=== PATIENT | male | born 1940 | race Caucasian/White ===

== ENCOUNTER 2017-01-29 10:09 | Inpatient (IN) ==
[2017-01-29] MEDS ORDERED: 0.9 % SODIUM CHLORIDE 1,000 ML IV ONE ×2 (10:23→12:10)
--- NOTE | 2017-01-29 10:39 | Emergency Department Note ---
Weakness HPI - General Chief complaint: Weakness Stated complaint: fall, low bp, dizziness Time Seen by Provider: 01/29/17 10:23 Source: patient, EMS Mode of arrival: EMS Limitations: no limitations - History of Present Illness HPI Narrative: 76-year-old male arrives via EMS with vague complaints. States he might be a little weaker than normal but he is always somewhat weak. He has a little bit short of breath at times but states that is a chronic issue for several years. He is still a smoker and has a "breathing machine at home". States the only thing different about this morning is every time he gets up he is a little bit dizzy. This morning he was dizzy and kind of fell but not all the way to the ground. He has had right hip pain for several months now the right hip pain is worse since that fall this morning. He did not hit his head. No head, neck, or back pain. He lives at [facility] and they wanted him to come get checked out. He states he has been eating and drinking as usual. Denies fever or chills. No nausea, vomiting, or diarrhea. States he has no concerns Associated symptoms: Denies: chest pain, confusion, dark stools, diaphoresis, dysuria, fever/chills, loss of appetite, nausea/vomiting, rash, syncope - Related Data Home Medications Medication Instructions Recorded Confirmed Aspirin [Teja Chewable Aspirin] 81 mg PO QDAY 04/23/16 01/29/17 Furosemide [Lasix] 40 mg PO DAILY 04/23/16 01/29/17 Gabapentin [Neurontin] 600 mg PO BID 04/23/16 01/29/17 LORazepam [Ativan] 0.5 mg PO BID 04/23/16 01/29/17 Memantine HCl [Namenda] 5 mg PO QDAY 04/23/16 01/29/17 Omeprazole 40 mg PO QDAY 04/23/16 01/29/17 Potassium Chloride [K-Tab ER] 20 meq PO QDAY 04/23/16 01/29/17 Simvastatin [Zocor] 40 mg PO HS 04/23/16 01/29/17 Vitamin B Complex 1 cap PO DAILY 04/23/16 01/29/17 Ziprasidone HCl [Geodon] 60 mg PO HS 04/23/16 01/29/17 Divalproex Sodium [Depakote] 250 mg PO QNOON 01/29/17 01/29/17 Divalproex Sodium [Depakote] 500 mg PO BID 01/29/17 01/29/17 Ipratropium/Albuterol [Duoneb] 3 ml NEB Q6HP PRN 01/29/17 01/29/17 Sertraline HCl [Zoloft] 100 mg PO DAILY 01/29/17 01/29/17 Allergies Allergy/AdvReac Type Severity Reaction Status Date / Time No Known Drug Allergies Allergy Verified 01/29/17 10:14 Review of Systems All systems ED: reviewed and negative except as stated. Past Medical History - Past Medical History [facility] Narrative: Medical History (Last Updated 09/22/16 @ 14:36 by [employer] MS) Chronic low back pain with right-sided sciatica (Acute) Medical history: Reports: CHF, COPD, other (Chronic back pain, anxiety, depression, edema, hyponatremia, ataxia, weight loss, hypokalemia, bipolar, schizophrenia, hyperlipidemia, mycoplasma pneumonia, nutrition disorder, fatty acid deficiency) - Social History smoking status: Current every day smoker Alcohol use: Reports: Unknown Drug use: Reports: none Physical Exam - General Limitations: no limitations General appearance: alert, in no apparent distress - Head Head exam: atraumatic, normocephalic, normal inspection - Eye Eye exam: Present: normal appearance, PERRL. Absent: conjunctival injection, periorbital swelling, periorbital tenderness - ENT ENT exam: normal exam, normal oropharynx, TM's normal bilaterally, normal external ear exam, other (Mucous membranes are slightly dry) - Neck Neck exam: Present: normal inspection, trachea midline. Absent: tenderness, lymphadenopathy - Chest Chest inspection: Present: normal inspection, symmetric chest wall rise - Respiratory Respiratory exam: Present: wheezes (Wheezes to bases bilaterally and rhonchi to mid and lower lobes bilateral). Absent: respiratory distress, accessory muscle use - Cardiovascular Cardiovascular exam: Present: regular rate, normal heart sounds - Abdominal Exam Abdominal exam: Present: soft, normal bowel sounds. Absent: distention, tenderness, guarding, mass - Extremities Exam Extremities exam: Present: normal inspection, tenderness (Tenderness, diffuse over the right hip. Pain with flexion and extension. No shortening or rotation ), normal capillary refill. Absent: pedal edema - Back Exam Back exam: Present: normal inspection. Absent: vertebral tenderness - Neurological Exam Neurological exam: Present: alert, oriented X3 (Very hard of hearing). Absent: motor sensory deficit - Psychiatric Psychiatric exam: Present: normal affect, normal mood - Skin Skin exam: Present: warm, dry, intact, normal color. Absent: rash, cyanosis, diaphoresis, erythema Course Course Narrative: @ 1220 I spoke with hospitalist Dr. Ellison who agrees to admit and care for patient Vital Signs Temperature 98.7 F 01/29/17 10:11 Pulse Rate 87 01/29/17 10:11 Respiratory Rate 16 01/29/17 10:11 Blood Pressure 88/56 01/29/17 10:11 Pulse Oximetry (%) 96 01/29/17 10:11 Temperature 98.5 F 01/29/17 11:31 Pulse Rate 64 01/29/17 13:01 Respiratory Rate 24 H 01/29/17 13:01 Blood Pressure 123/68 01/29/17 13:01 Pulse Oximetry (%) 96 01/29/17 13:01 Weakness - Lab Data Lab results reviewed: Yes I reviewed the patient's lab results. Result diagrams: 01/29/17 10:35 01/29/17 10:35 Lab Results 01/29/17 01/29/17 01/29/17 Range/Units 10:35 10:35 10:35 WBC 21.6 H (4.5-11.0) K/mcL RBC 3.83 L (4.50-5.90) M/mcL Hgb 12.8 L (13.5-16.5) g/dL Hct 37.5 L (41.0-55.0) % MCV 97.9 (80.0-100.0) fL MCH 33.5 (26.0-34.0) pg MCHC 34.2 (31.0-36.0) g/dL RDW 15.3 H (11.5-14.5) % Plt Count 233 (140-440) K/mcL MPV 9.7 (7.4-10.4) fL Total Counted 100 Seg Neutrophils % 83 H (38-78) % Band Neutrophils % Not Reportable Lymphocytes % 9 L (15-49) % Monocytes % (Manual) 8 (1-12) % Platelet Estimate Normal (NORMAL) RBC Morphology Normal (NORMAL) VBG Lactic Acid (0.5-2.2) mmol/L Sodium 138 (133-145) mmol/L Potassium 4.1 (3.3-5.1) mmol/L Chloride 101 (96-108) mmol/L Carbon Dioxide 20 L (22-30) mmol/L Anion Gap 17.0 H (8-16) BUN 27 H (8-23) mg/dl Creatinine 1.0 (0.7-1.2) mg/dl GFR Calculation 73 Glucose 150 H (70-105) mg/dL Calcium 8.7 (8.6-10.4) mg/dl Total Bilirubin 0.5 (0.0-1.0) mg/dL AST 20 (0-37) U/l ALT 12 (0-40) U/l Alkaline Phosphatase 71 (39-117) U/L Troponin T < 0.01 (0-0.03) ng/ml NT-Pro-B Natriuret Pep 760.1 H (0-450) pg/ml Total Protein 7.0 (5.9-8.4) gm/dL Albumin 3.4 (3.2-5.2) gm/dL Globulin 3.6 (2.2-3.7) gm/dL Albumin/Globulin Ratio 0.9 L (1.0-2.3) 01/29/17 Range/Units 10:45 WBC (4.5-11.0) K/mcL RBC (4.50-5.90) M/mcL Hgb (13.5-16.5) g/dL Hct (41.0-55.0) % MCV (80.0-100.0) fL MCH (26.0-34.0) pg MCHC (31.0-36.0) g/dL RDW (11.5-14.5) % Plt Count (140-440) K/mcL MPV (7.4-10.4) fL Total Counted Seg Neutrophils % (38-78) % Band Neutrophils % Lymphocytes % (15-49) % Monocytes % (Manual) (1-12) % Platelet Estimate (NORMAL) RBC Morphology (NORMAL) VBG Lactic Acid 2.6 H (0.5-2.2) mmol/L Sodium (133-145) mmol/L Potassium (3.3-5.1) mmol/L Chloride (96-108) mmol/L Carbon Dioxide (22-30) mmol/L Anion Gap (8-16) BUN (8-23) mg/dl Creatinine (0.7-1.2) mg/dl GFR Calculation Glucose (70-105) mg/dL Calcium (8.6-10.4) mg/dl Total Bilirubin (0.0-1.0) mg/dL AST (0-37) U/l ALT (0-40) U/l Alkaline Phosphatase (39-117) U/L Troponin T (0-0.03) ng/ml NT-Pro-B Natriuret Pep (0-450) pg/ml Total Protein (5.9-8.4) gm/dL Albumin (3.2-5.2) gm/dL Globulin (2.2-3.7) gm/dL Albumin/Globulin Ratio (1.0-2.3) - Radiology Data Radiology results reviewed: Yes I reviewed the patient's radiology results. - EKG Data EKG attestation: Yes I reviewed and interpreted this EKG. EKG shows normal: sinus rhythm Rate: normal Rhythm: NSR [place]/QRS: normal Interpretation: no acute changes, normal EKG Disposition Pt seen by COMMER[employer] TRA[employer]ER TR[employer] DRIVER/PA only: Yes Clinical Impression: Pneumonia Disposition: Xfer As Inpt ([facility]) Condition: Fair Referrals: Bel Beck MD [Primary Care Provider] - Time of Disposition: 13:48
[2017-01-29 11:29] LABS: Mean Cell Volume 97.9 fL (80.0-100.0); Mean Corpuscular HGB Conc 34.2 g/dL (31.0-36.0); Mean Corpuscular Hemoglobin 33.5 pg (26.0-34.0); Platelet Count 233 K/mcL (140-440); RBC 3.83 M/mcL (4.50-5.90); Red Cell Distribution Width 15.3 % (11.5-14.5)
[2017-01-29 11:53] LABS: proBNP 760.1 pg/ml (0-450)
[2017-01-29 11:54] LABS: ALT/SGPT 12 U/l (0-40); Albumin 3.4 gm/dL (3.2-5.2); Albumin/Globulin Ratio 0.9 (1.0-2.3); Alkaline Phosphatase 71 U/L (39-117); Blood Urea Nitrogen 27 mg/dl (8-23)
[2017-01-29 12:06] LABS: Lymphocytes % 9 % (15-49); Monocytes % (Manual) 8 % (1-12); Platelet Estimate NORMAL (NORMAL); RBC Morphology NORMAL (NORMAL); Segmented Neutrophils % 83 % (38-78)
[2017-01-29] MEDS ORDERED: CEFEPIME 1 GM in DEXTROSE 5% IN WATER 50 ML IV ONE (12:41)
--- NOTE | 2017-01-29 15:39 | Internal Med History&Physical ---
Medical - H&P: HPI Patient information: Note initiated : 01/29/17 at 3:32 pm Patient: Gabe Armas 76 y/o M admitted on for fall, low bp, SIRS syndrome History of present illness: Mr. Armas is a 76 year old with a history of numerous chronic medical problems. Apparently, when he woke up today he felt quite lightheaded, and either fell or nearly fell down. He was sent over to the ER from [facility]. He says he has had a bit of a headache. He thinks his vision may have been blurry but is not sure. He is not a great historian. ER evaluation showed marked leukocytosis, hypotension, lactic acidosis, chest x- ray suggestive of pneumonia. Otherwise, the patient cannot recall having fever or chills, new ear or sinus symptoms, sore throat or cough, shortness of breath, chest pain or palpitations , abdominal pain, nausea or vomiting, diarrhea or constipation. He says he has chronic urinary frequency which is unchanged. He denies a history of COPD, but is treated with duo nebs at [facility]. He has also been a smoker since the age of 18, although he says he does not inhale very much of them. He did have some increased right hip pain after his fall today, and ER evaluation was reported as negative. Past medical history: chronic back pain, sciatica. Hyperlipidemia GERD Memory loss, depression and anxiety, bipolar disorder, schizophrenia hyponatremia Edema Ataxia COPD? Tobacco abuse CHF? Past history of mycoplasma pneumonia History of fatty acid deficiency Medications: Depakote 250 mg p.o. q. noon Depakote 500 mg p.o. twice daily Geodon 60 mg nightly Vitamin B complex one daily Zocor 40 mg nightly Zoloft 100 mg daily Potassium chloride 20 mEq daily Omeprazole 40 mg daily Memantine 5 mg daily [place] Ativan 0.5 mg twice daily Duo nebs every 6 hours as needed Gabapentin 600 mg p.o. twice daily Lasix 40 mg daily Aspirin 81 mg daily Lorazepam 0.5 mg twice daily Allergies: No known drug allergies. Social history: Patient is a current smoker, starting at age 18. He says he quit once, but is unable to really quantify how much he has been smoking.. He denies alcohol or drug use. He lives at [facility]. He hopes to return home soon. He says his closest relative is a gal that lives in [place]. His son ,Blayne, lives in [place], and he would like him to act as his POA. He requests full code at this time. Family history: Patient believes his father had Parkinson's disease. He is a little unclear on what his mother from. His brother with congestive heart failure. Medical - H&P: Meds Home Medications Medication Instructions Recorded Confirmed Type Aspirin [Teja Chewable Aspirin] 81 mg PO QDAY 04/23/16 01/29/17 History Furosemide [Lasix] 40 mg PO DAILY 04/23/16 01/29/17 History Gabapentin [Neurontin] 600 mg PO BID 04/23/16 01/29/17 History LORazepam [Ativan] 0.5 mg PO BID 04/23/16 01/29/17 History Memantine HCl [Namenda] 5 mg PO QDAY 04/23/16 01/29/17 History Omeprazole 40 mg PO QDAY 04/23/16 01/29/17 History Potassium Chloride [K-Tab ER] 20 meq PO QDAY 04/23/16 01/29/17 History Simvastatin [Zocor] 40 mg PO HS 04/23/16 01/29/17 History Vitamin B Complex 1 cap PO DAILY 04/23/16 01/29/17 History Ziprasidone HCl [Geodon] 60 mg PO HS 04/23/16 01/29/17 History Divalproex Sodium [Depakote] 250 mg PO QNOON 01/29/17 01/29/17 History Divalproex Sodium [Depakote] 500 mg PO BID 01/29/17 01/29/17 History Ipratropium/Albuterol [Duoneb] 3 ml NEB Q6HP PRN 01/29/17 01/29/17 History Sertraline HCl [Zoloft] 100 mg PO DAILY 01/29/17 01/29/17 History Allergies Allergy/AdvReac Type Severity Reaction Status Date / Time No Known Drug Allergies Allergy Verified 01/29/17 10:14 Medical - H&P: Exam - Constitutional Vitals: Temp Pulse Resp BP Pulse Ox 98.5 F 64 18 124/69 96 01/29/17 11:31 01/29/17 13:01 01/29/17 15:01 01/29/17 15:01 01/29/17 13:01 On arrival, the patient does not appear to be in any distress. Respiratory rate varies from 16-23. Prior sure varies from 88/56 to 130/66. Oxygen is 96% on room air. Head: Normocephalic, atraumatic. Ears: TMs and canals are clear. Pharynx: Is clear. He is edentulous, with full plates. Posterior pharynx does not show any exudate. Neck: Is supple, without lymphadenopathy, JVD, thyromegaly. He does have bilateral carotid bruits, which may be radiating from his heart murmur. Cardiac exam: Shows regular rate and rhythm with normal S1 and S2, without rubs or gallops. There is a 2/6 holosystolic murmur heard loudest at the apex. Lungs: Is generally decreased breath sounds throughout. I do not really appreciate any crackles, wheezes, rhonchi. Abdomen: Is soft and nontender with no masses. Bowel sounds are active. Extremities: Show no cyanosis, clubbing, edema. He does have chronic pigment changes consistent with previous stasis dermatitis. The skin on his feet is very dry. Neurologic exam: The patient is awake and alert. Affect is a little unusual. He is calm and cooperative, but a little on the irritable side. Motor exam is grossly nonfocal. Medical - H&P: Reslt - Labs CBC & Chem 7: 01/29/17 10:35 01/29/17 10:35 Labs: Short CBC 01/29/17 Range/Units 10:35 WBC 21.6 H (4.5-11.0) K/mcL Hgb 12.8 L (13.5-16.5) g/dL Hct 37.5 L (41.0-55.0) % Plt Count 233 (140-440) K/mcL BMP 01/29/17 10:35 Sodium 138 Potassium 4.1 Chloride 101 Carbon Dioxide 20 L BUN 27 H Creatinine 1.0 Glucose 150 H Calcium 8.7 Cardiac Enzymes 01/29/17 Range/Units 10:35 Troponin T < 0.01 (0-0.03) ng/ml Liver Function 01/29/17 Range/Units 10:35 Total Bilirubin 0.5 (0.0-1.0) mg/dL AST 20 (0-37) U/l ALT 12 (0-40) U/l Alkaline Phosphatase 71 (39-117) U/L Albumin 3.4 (3.2-5.2) gm/dL January 29: Lactic acid is elevated at 2.6. ABG: On room air: PH 7.45, CO2 40, PO2 74, bicarb 27, O2 saturation 95% BNP is elevated at 760. Chest x-ray: Shows mild cardiomegaly, pectus excavatum. Moderate left lower lobe infiltrate noted with small left pleural effusion. Hip x-ray: Shows no fracture. There is degenerative disc disease of the lumbar spine. EKG: Shows normal sinus rhythm at a rate of 68, and appears to be a normal tracing. February 15, 2016: Echocardiogram: Shows mild aortic stenosis. Mitral valve calcification. Left ventricular appeared normal, with ejection fraction of 65% . Aortic valve was heavily calcified with reduced valve opening. Medical - H&P: A/P (1) Sepsis associated hypotension Current visit: Yes Status: Acute (2) Schizoaffective disorder Current visit: Yes Status: Chronic (3) Bipolar disorder Current visit: Yes Status: Chronic (4) Depression with anxiety Current visit: Yes Status: Chronic (5) Pneumonia Current visit: Yes Status: Acute (6) Hyperlipidemia Current visit: Yes Status: Chronic (7) COPD (chronic obstructive pulmonary disease) Current visit: Yes Status: Chronic (8) Tobacco abuse Current visit: Yes Status: Chronic (9) Congestive heart failure Current visit: Yes Status: Chronic - Narrative A/P Narrative: #1. Infectious disease/pulmonary. Patient presents with hypotension, dizziness, pneumonia, significant leukocytosis, lactic acidosis, consistent with early sepsis and community- acquired pneumonia in the setting of COPD. -He is at moderately increased risk for further complications. Admit to PICU for close monitoring. -Aggressive fluid resuscitation, recheck lactic acid in 6 hours. -Blood and sputum cultures. -Cover with Zosyn pending culture results -Continuous telemetry and pulse oximetry. -Duo nebs, albuterol, oxygen, pulmonary toilet. -Consider steroids if he has significant wheezing or other signs of obstruction. -Likely underlying COPD. Treat as above. -Repeat chest x-ray in the morning. -Consider Pneumovax and flu vaccines prior to discharge, if he has not had these. 2. Cardiac. Reported history of CHF, though recent echocardiogram points more towards aortic stenosis. Patient denies cardiac history, but his history appears unreliable. Continue Zocor, potassium, Lasix, aspirin. 3. Psychiatric. Reported history of schizophrenia, depression and anxiety, memory loss. Continue usual medications as tolerated, including Zoloft, Depakote, Geodon, memantine, gabapentin, lorazepam.. 4. GI. GERD continue PPI. 5.. Chronic tobacco abuse. Counseled against this. NicoDerm patch if desired. 6. CODE STATUS: Patient requests full code, and requests that his son, Blayne Bond, act as his POA. Osei lives in [facility]. 7. DVT prophylaxis: Subcu Lovenox. This visit took approximately 60 minutes, to review the patient's records and test results, review his case with the ER MD, interview and examine him, and write orders.
--- NOTE | 2017-01-29 16:08 | XRay Report ---
CLINICAL INFORMATION: Trauma COMPARISON: 04/23/2016 FINDINGS: No fracture or other significant osseous abnormality identified. Both SI and hip joints are unremarkable. Moderate L3-4, mild L4-5 and moderate L5-S1 degenerative disc disease is unchanged. No soft tissue abnormalities IMPRESSION: No evidence of fracture or other pelvic abnormality. Degenerative disc disease lower lumbar spine are stable Interpreted and Authenticated by: Nacho Arcos 01/29/17
--- NOTE | 2017-01-29 16:28 | XRay Report ---
CLINICAL INFORMATION: Weakness and elevated white blood cell count COMPARISON: None. FINDINGS: The heart is mildly enlarged, but accentuated by pectus excavatum deformity. Mediastinum and pulmonary vessels are unremarkable. Moderate left lower lobe infiltrate noted with small left pleural effusion IMPRESSION: Moderate left lower lobe pneumonia with small effusion Interpreted and Authenticated by: Nacho Arcos 01/29/17
[2017-01-29] MEDS ORDERED: NOREPINEPHRINE BITARTRATE 16 MG in 0.9 % SODIUM CHLORIDE 234 ML IV SCH (16:42)
[2017-01-29] MEDS ORDERED: ACETAMINOPHEN 325 MG TABLET PO PRN (16:42)
[2017-01-29] MEDS ORDERED: ALBUTEROL SULFATE 2.5 MG/3 ML NEBULIZER NEB PRN (16:42)
[2017-01-29] MEDS ORDERED: MAGNESIUM HYDROXIDE 30 ML ORAL.SUSP PO PRN (16:42)
[2017-01-29] MEDS ORDERED: DOCUSATE SODIUM 100 MG CAPSULE PO PRN (16:42)
[2017-01-29] MEDS: 0.9 % SODIUM CHLORIDE 10 ML SYRINGE IV SCH ×2 (16:49→21:49)
[2017-01-29] MEDS: 0.9 % SODIUM CHLORIDE 1,000 ML IV SCH (17:00)
[2017-01-29] MEDS ORDERED: NICOTINE 21 MG PATCH TOPICAL ONE (17:06)
[2017-01-29] MEDS ORDERED: PIPERACILLIN SODIUM/TAZOBACTAM 3.375 GM VIAL IV ONE (18:22)
[2017-01-29] MEDS: PIPERACILLIN SODIUM/TAZOBACTAM 3.375 GM in DEXTROSE 5% IN WATER 50 ML IV SCH (18:50)
[2017-01-29] MEDS: IPRATROPIUM/ALBUTEROL 3 ML AMPUL.NEB NEB SCH (19:38)
[2017-01-29] MEDS: LORazepam 0.5 MG TABLET PO SCH (20:25)
[2017-01-29] MEDS: DIVALPROEX 125 MG CAP.SPRINK PO SCH (20:26)
[2017-01-29] MEDS: GABAPENTIN 300 MG CAPSULE PO SCH (20:27)
[2017-01-29] MEDS: ZIPRASIDONE HCL 60 MG PO SCH (20:51)
[2017-01-29] MEDS ORDERED: NON FORMULARY MEDICATION 1 DOSE MISCELL (Divalproex Sodium [Depakote] 500 MG) PO SCH (21:00)
[2017-01-29] MEDS ORDERED: ZIPRASIDONE HCL 60 MG PO SCH (21:00)
[2017-01-29] MEDS ORDERED: LORazepam 0.5 MG TABLET PO SCH (21:00)
[2017-01-29] MEDS ORDERED: GABAPENTIN 300 MG CAPSULE PO SCH (21:00)
[2017-01-29] MEDS ORDERED: SIMVASTATIN 40 MG TABLET PO SCH ×2 (21:00)
[2017-01-29] MEDS: BUDESONIDE 0.5 MG/2 ML AMPUL.NEB NEB SCH (21:23)
[2017-01-30] MEDS: 0.9 % SODIUM CHLORIDE 1,000 ML IV SCH ×4 (00:41→14:57)
[2017-01-30] MEDS ORDERED: PIPERACILLIN SODIUM/TAZOBACTAM 3.375 GM VIAL IV ONE ×2 (00:49→06:29)
[2017-01-30] MEDS: PIPERACILLIN SODIUM/TAZOBACTAM 3.375 GM in DEXTROSE 5% IN WATER 50 ML IV SCH ×3 (00:52→11:56)
[2017-01-30] MEDS: IPRATROPIUM/ALBUTEROL 3 ML AMPUL.NEB NEB SCH ×3 (01:20→13:04)
[2017-01-30] MEDS: 0.9 % SODIUM CHLORIDE 10 ML SYRINGE IV SCH (06:27)
[2017-01-30] MEDS ORDERED: NOREPINEPHRINE BITARTRATE 16 MG in 0.9 % SODIUM CHLORIDE 234 ML IV PRN ×2 (07:00→13:38)
[2017-01-30 07:08] LABS: Basophils # (Auto) 0 K/mcL (0.0-0.3); Basophils % (Auto) 0.2 % (0.0-2.0); Eosinophils # (Auto) 0.1 K/mcL (0.0-0.7); Eosinophils % (Auto) 0.8 % (0.0-7.0); Granulocytes % (Auto) 75.1 % (38.0-78.0); Lymphocytes % (Auto) 14.5 % (15.5-49.0); Mean Cell Volume 99.5 fL (80.0-100.0); Mean Corpuscular HGB Conc 33.6 g/dL (31.0-36.0); Mean Corpuscular Hemoglobin 33.4 pg (26.0-34.0); Monocytes # (Auto) 1.3 K/mcL (0.1-0.9); Monocytes % (Auto) 9.4 % (1.0-12.0); Platelet Count 195 K/mcL (140-440); RBC 3.19 M/mcL (4.50-5.90); Red Cell Distribution Width 15.1 % (11.5-14.5)
[2017-01-30] MEDS: BUDESONIDE 0.5 MG/2 ML AMPUL.NEB NEB SCH (07:20)
[2017-01-30] MEDS ORDERED: PANTOPRAZOLE 40 MG TABLET PO SCH (07:30)
[2017-01-30 07:38] LABS: ALT/SGPT 10 U/l (0-40); Albumin 2.8 gm/dL (3.2-5.2); Albumin/Globulin Ratio 0.9 (1.0-2.3); Alkaline Phosphatase 78 U/L (39-117); Bilirubin,Direct < 0.2 mg/dL (0.0-0.3); Blood Urea Nitrogen 19 mg/dl (8-23); Gamma Glutamyl Transpeptidase 31 U/L (8-61); Magnesium 1.8 mg/dL (1.6-2.5); Uric Acid 3.8 mg/dL (2.5-8.0)
[2017-01-30] MEDS ORDERED: POTASSIUM CHLORIDE 20 MEQ TABLET PO SCH (08:00)
[2017-01-30] MEDS ORDERED: SERTRALINE 25 MG TABLET PO SCH (09:00)
[2017-01-30] MEDS ORDERED: MEMANTINE 10 MG TABLET PO SCH (09:00)
[2017-01-30] MEDS ORDERED: ENOXAPARIN 40 MG/0.4 ML SYRINGE SQ SCH (09:00)
[2017-01-30] MEDS ORDERED: VITAMIN B COMPLEX 1 CAPSULE PO SCH ×2 (09:00)
[2017-01-30] MEDS ORDERED: ASPIRIN 81 MG TAB.CHEW PO SCH ×2 (09:00)
[2017-01-30] MEDS ORDERED: MEMANTINE HCL 5 MG PO SCH (09:00)
[2017-01-30] MEDS ORDERED: NON FORMULARY MEDICATION 1 DOSE MISCELL (Potassium Chloride [K-Tab Er] 20 MEQ) PO SCH (09:00)
[2017-01-30] MEDS ORDERED: SERTRALINE 50 MG TABLET PO SCH (09:00)
--- NOTE | 2017-01-30 09:02 | XRay Report ---
CLINICAL INFORMATION: Follow left lower lobe pneumonia COMPARISON: 01/29/2017 FINDINGS: Heart is accentuated by pectus excavatum deformity. Mediastinum and pulmonary vessels are normal. Left lower infiltrates improved considerably with small residual. Underlying COPD changes noted IMPRESSION: Marked improvement in left lower lobe pneumonia - small residual Interpreted and Authenticated by: Nacho Arcos 01/30/17
[2017-01-30] MEDS: LORazepam 0.5 MG TABLET PO SCH (09:13)
[2017-01-30] MEDS: DIVALPROEX 125 MG CAP.SPRINK PO SCH (09:13)
[2017-01-30] MEDS: GABAPENTIN 300 MG CAPSULE PO SCH (09:13)
[2017-01-30] MEDS: ZIPRASIDONE HCL 60 MG PO SCH (10:11)
[2017-01-30] MEDS ORDERED: LORazepam 2 MG/ML VIAL IV ONE (10:17)
[2017-01-30] MEDS: NICOTINE 21 MG PATCH TOPICAL SCH ×2 (11:11→11:57)
[2017-01-30] MEDS ORDERED: DIVALPROEX SODIUM 250 MG PO SCH (12:00)
[2017-01-30] MEDS ORDERED: DIVALPROEX 125 MG CAP.SPRINK PO SCH ×2 (12:00→21:00)
[2017-01-30] MEDS ORDERED: ACETAMINOPHEN 325 MG TABLET PO PRN (13:38)
[2017-01-30] MEDS ORDERED: MAGNESIUM HYDROXIDE 30 ML ORAL.SUSP PO PRN (13:38)
[2017-01-30] MEDS ORDERED: 0.9 % SODIUM CHLORIDE 1,000 ML IV SCH (13:38)
[2017-01-30] MEDS ORDERED: DOCUSATE SODIUM 100 MG CAPSULE PO PRN (13:38)
[2017-01-30] MEDS ORDERED: ALBUTEROL SULFATE 2.5 MG/3 ML NEBULIZER NEB PRN (13:38)
[2017-01-30] MEDS ORDERED: 0.9 % SODIUM CHLORIDE 10 ML SYRINGE IV SCH (14:00)
--- NOTE | 2017-01-30 14:03 | Discharge Summary ---
Medical - DS: Prov Patient information: Note initiated : 01/30/17 at 1:59 pm Service Date, if different from initiated Date: [] Patient: Gabe Armas 76 y/o M admitted on 01/29/17 for Fall, Low BP, Dizziness/Pneumonia. Chief Complaint: [] Date of admission: 01/29/17 16:15 Discharge date: 01/30/17 Primary care physician: Bel Beck Admitting clinician: Leny Hendricks Discharging clinician: [facility] - DS: Meds - Discharge Medications Prescriptions: Cefdinir 300 mg PO BID #14 capsule Doxycycline Hyclate [Vibramycin] 100 mg PO BID #14 capsule Active and Home Medications: Home Medications Aspirin [Teja Chewable Aspirin] 81 mg PO QDAY 04/23/16 [History Confirmed 01/29 Last Taken 01/29/17 08:00] Furosemide [Lasix] 40 mg PO DAILY 04/23/16 [History Confirmed 01/29/17 Last Taken 01/29/17 08:00] Gabapentin [Neurontin] 600 mg PO BID 04/23/16 [History Confirmed 01/29/17 Last Taken 01/29/17 08:00] LORazepam [Ativan] 0.5 mg PO BID 04/23/16 [History Confirmed 01/29/17 Last Taken 01/29/17 08:00] Memantine HCl [Namenda] 5 mg PO QDAY 04/23/16 [History Confirmed 01/29/17 Last Taken 01/29/17 08:00] Omeprazole 40 mg PO QDAY 04/23/16 [History Confirmed 01/29/17 Last Taken 08:00] Potassium Chloride [K-Tab ER] 20 meq PO QDAY 04/23/16 [History Confirmed Last Taken 01/29/17 08:00] Simvastatin [Zocor] 40 mg PO HS 04/23/16 [History Confirmed 01/29/17 Last Taken 01/28/17 21:00] Vitamin B Complex 1 cap PO DAILY 04/23/16 [History Confirmed 01/29/17 Last Taken 01/29/17 16:55] Ziprasidone HCl [Geodon] 60 mg PO HS 04/23/16 [History Confirmed 01/29/17 Last Taken 01/28/17 21:00] Divalproex Sodium [Depakote] 250 mg PO QNOON 01/29/17 [History Confirmed Last Taken 01/28/17] Divalproex Sodium [Depakote] 500 mg PO BID 01/29/17 [History Confirmed 01/29/17 Last Taken 01/29/17 08:00] Ipratropium/Albuterol [Duoneb] 3 ml NEB Q6HP PRN 01/29/17 [History Confirmed Last Taken Unknown] Sertraline HCl [Zoloft] 100 mg PO DAILY 01/29/17 [History Confirmed 01/29/17 Last Taken 01/29/17 08:00] Medical - DS: Hosp Hospital course: Mr. Armas is a 76 year old with a history of numerous chronic medical and psychiatric problems. The patient when he woke up yesterday felt quite lightheaded, and either fell or nearly fell down. He was sent over to the ER from [facility] for further evaluation. He says he has had a bit of a headache. He thinks his vision may have been blurry but is not sure. He is not a great historian and did not provide much history. ER evaluation showed marked leukocytosis, hypotension, lactic acidosis, chest x- ray suggestive of pneumonia. Otherwise, the patient cannot recall having fever or chills, new ear or sinus symptoms, sore throat or cough, shortness of breath, chest pain or palpitations , abdominal pain, nausea or vomiting, diarrhea or constipation. He says he has chronic urinary frequency which is unchanged. He denies a history of COPD, but is treated with duo nebs at [facility]. He has also been a smoker since the age of 18, although he says he does not inhale very much of them. He did have some increased right hip pain after his fall today, and ER evaluation was reported as negative. The patient was admitted to the hospital for pneumonia. The patient was treated with vanco and zosyn with good response, the patient this AM had improved wbc, and was not needing oxygen. The patient today was agitated and demanded to be discharged. I tried to reason with him this AM with regards to his health condition and the feact that he has a pneumonia and needs antibiotics preferably through IV till his condition is more stable, but the patient refused to stay. We called [facility] to evaluate the patient and it seems that the patient is not at imminent risk of hurting self and does seem to have fair insight into his decisions. I reviewed with him his diagnosis and the need for staying in the hospital again , and he refused to stay, willing to accept the consequences of his decion which he is aware includes return of the infection, hospital stay again and also likely . He would still like to be discharged. He is willing to accept oral antibiotics at his facility. I will discharge him on oral third gen cephalosporin Cefdinir 300mg bid and doxycycline 100mg bid for another 7 days. Levofloxa not used as it would interact with his psych meds. Discharge diagnosis: pneumonia - Time Spent with Patient Total time spent providing and/or coordinating discharge services: Greater than 30 minutes Medical - DS: Exam - Constitutional Vitals: Vital Signs Temp Pulse Pulse Resp BP BP Pulse Ox 01/30/17 12:00 98.9 F 20 134/66 100 01/30/17 10:36 26 H 01/30/17 10:01 15 108/64 01/30/17 09:29 20 01/30/17 09:00 21 97/55 01/30/17 08:01 68 10 L 98/57 100 01/30/17 08:00 98.4 F 01/30/17 07:23 63 19 01/30/17 07:00 56 L 63 18 110/57 110/57 98 01/30/17 06:05 60 17 97 01/30/17 06:00 57 L 28 H 105/53 100 01/30/17 05:25 57 L 20 98 01/30/17 05:00 61 33 H 101/51 99 01/30/17 04:00 99.5 F H 58 L 18 102/49 97 01/30/17 03:00 62 21 85/71 96 01/30/17 02:15 66 93 01/30/17 02:01 66 16 92/61 98 01/30/17 01:01 51 L 14 129/60 100 01/30/17 00:01 98.9 F 51 L 12 111/95 98 01/29/17 23:02 50 L 18 116/87 95 01/29/17 22:46 51 L 22 98 01/29/17 22:25 51 L 01/29/17 22:01 55 L 19 124/64 96 01/29/17 21:02 59 L 14 118/75 99 01/29/17 20:01 98.2 F 61 21 115/67 97 01/29/17 19:39 58 L 14 01/29/17 19:21 55 L 95 01/29/17 19:01 14 121/66 01/29/17 18:02 14 116/62 01/29/17 17:32 58 L 14 128/59 96 01/29/17 17:02 56 L 16 128/69 99 01/29/17 16:31 55 L 17 130/66 99 01/29/17 16:29 98.3 F 58 L 18 120/68 100 Intake and Output 01/29/17 01/30/17 01/30/17 21:59 05:59 13:59 Intake Total 400 / 400 1720 / 1720 1480 / 1480 Output Total 1400 / 1400 Balance 400 / -150 320 / 320 1480 / 1480 Intake: IV 1000 / 1000 1000 / 1000 Sodium Chloride 0.9% 1, 1000 / 1000 1000 / 1000 000 ml @ 150 mls/hr IV . Q6H40M [facility] Rx#:[id number] Oral 400 / 400 720 / 720 480 / 480 Output: Urine Catheter Amount 1400 / 1400 Other: Meal Dinner snack Breakfast Percent of Meal Consumed 100% 100% 100% Feeding Ability Independent Assist with Tray Set Up Assist with Tray Set Up Weight 160 lb 14.4 oz Additional comments: Constitutional; Afebrile, cooperative, alert, not in distress. Eyes- No icterus, , No periorbital swelling Ears- Ext ear normal, hearing normal to conversation. Neck- Midline trachea, supple Respiratory system: Air Entry equal on both sides, No crackles or wheezing, no rhonchi. CVS- Rate rhythm regular, S1,S2 heard, no gallop, no rub. Abdomen- Soft nontender abdomen, no organomegaly, no tenderness, no guarding or rigidity, [employer]- AOOx3, moving all extremities, no gross focal deficit noted. Medical - DS: Data Labs on day of discharge: Labs from last 24 hours 01/30/17 01/30/17 01/29/17 03:30 03:30 17:00 WBC 13.6 H RBC 3.19 L Hgb 10.6 L Hct 31.7 L MCV 99.5 MCH 33.4 MCHC 33.6 RDW 15.1 H Plt Count 195 MPV 9.4 Gran % 75.1 Lymph % (Auto) 14.5 L [place] % (Auto) 9.4 Eos % (Auto) 0.8 Baso % (Auto) 0.2 Gran # 10.2 H Lymph # (Auto) 2.0 [place] # (Auto) 1.3 H Eos # (Auto) 0.1 Baso # (Auto) 0 VBG Lactic Acid 0.7 Sodium 141 Potassium 3.5 Chloride 104 Carbon Dioxide 22 Anion Gap 15.0 BUN 19 Creatinine 0.7 GFR Calculation 92 Glucose 94 Uric Acid 3.8 Calcium 8.1 L Phosphorus 1.7 L Magnesium 1.8 Total Bilirubin 0.3 Direct Bilirubin < 0.2 GGT 31 AST 17 ALT 10 Alkaline Phosphatase 78 Lactate Dehydrogenase 239 Total Protein 5.8 L Albumin 2.8 L Globulin 3.0 Albumin/Globulin Ratio 0.9 L Triglycerides 58 Medical - DS: A/P - Patient/Caregiver Discharge Instructions Activity: increase activity as tolerated Diet: Regular Diet Additional Instructions: Take antibiotics for another 7 days] Follow up with your pcp in 7 days Go to the ER if worsening condition, fever, chills, chest pain or shortness of breath or any other concerning symptom. Prescriptions: Cefdinir 300 mg PO BID #14 capsule Doxycycline Hyclate [Vibramycin] 100 mg PO BID #14 capsule - Follow up Plan Follow up with: Bel Beck MD [Primary Care Provider] - Disposition: Home, Self-Care Prognosis: Fair Rehab Potential: Fair I certify that the patient requires SNF services: No Overall status at discharge: patient is progressing back to baseline
[2017-01-30] MEDS ORDERED: PIPERACILLIN SODIUM/TAZOBACTAM 3.375 GM in DEXTROSE 5% IN WATER 50 ML IV SCH (18:00)
[2017-01-30] MEDS ORDERED: IPRATROPIUM/ALBUTEROL 3 ML AMPUL.NEB NEB SCH (19:00)
[2017-01-30] MEDS ORDERED: ZIPRASIDONE HCL 60 MG PO SCH (21:00)
[2017-01-30] MEDS ORDERED: NEUTRA PHOS 1 PACKET PO SCH ×2 (21:00)
[2017-01-30] MEDS ORDERED: GABAPENTIN 300 MG CAPSULE PO SCH (21:00)
[2017-01-30] MEDS ORDERED: SIMVASTATIN 40 MG TABLET PO SCH (21:00)
[2017-01-30] MEDS ORDERED: BUDESONIDE 0.5 MG/2 ML AMPUL.NEB NEB SCH (21:00)
[2017-01-30] MEDS ORDERED: LORazepam 0.5 MG TABLET PO SCH (21:00)
[2017-01-31] MEDS ORDERED: PANTOPRAZOLE 40 MG TABLET PO SCH (07:30)
[2017-01-31] MEDS ORDERED: POTASSIUM CHLORIDE 20 MEQ TABLET PO SCH (08:00)
[2017-01-31] MEDS ORDERED: FLU VACC QS2017-18 36MOS UP/PF 60 MCG/0.5 ML SYRINGE IM ONE (09:00)
[2017-01-31] MEDS ORDERED: VITAMIN B COMPLEX 1 CAPSULE PO SCH (09:00)
[2017-01-31] MEDS ORDERED: ASPIRIN 81 MG TAB.CHEW PO SCH (09:00)
[2017-01-31] MEDS ORDERED: MEMANTINE 10 MG TABLET PO SCH (09:00)
[2017-01-31] MEDS ORDERED: ENOXAPARIN 40 MG/0.4 ML SYRINGE SQ SCH (09:00)
[2017-01-31] MEDS ORDERED: SERTRALINE 50 MG TABLET PO SCH (09:00)
[2017-01-31] MEDS ORDERED: NICOTINE 21 MG PATCH TOPICAL SCH (10:00)
[2017-01-31] MEDS ORDERED: DIVALPROEX 125 MG CAP.SPRINK PO SCH (12:00)
== END 2017-01-30 15:30 | disposition home or self-care (01) | DRG 871 ==
LOC: ED 10:09 → ICU 16:10
PROVIDERS: ADMIT Internal Medicine; ATTEND Internal Medicine